=== PATIENT | female | born 1940 | race American Indian/Alaskan Native ===

== ENCOUNTER 2017-02-26 15:56 | Emergency (ER) | payer MEDICARE, BC ==
[2017-02-26 15:57] VITALS: BMI 38.1
[2017-02-26 16:12] VITALS: TEMP 98.8
[2017-02-26] MEDS ORDERED: Sodium Chloride 0.9% 1,000 ML IV ONE (17:40)
--- NOTE | 2017-02-26 17:48 | C.PDOC ---
History Of Present Illness 76-year-old female presents to the emergency department with complaints of pelvic pain, hematuria/dysuria after being treated with intravesicular BCG by Dr Janae Will this morning (for bladder CA). Patient notes that this was her third treatment, and she has not had any complications with previous treatments. Denies fever, nausea/vomiting, vaginal bleeding or discharge. Time Seen by Provider: 02/26/17 16:22 Chief Complaint (Nursing): Female Genitourinary History Per: Patient History/Exam Limitations: no limitations Onset/Duration Of Symptoms: Hrs Current Symptoms Are (Timing): Still Present Severity: Mild Associated Symptoms: denies: Fever, Chills, Nausea, Vomiting Abnormal Vaginal Bleeding: No Past Medical History Reviewed: Historical Data, Nursing Documentation, Vital Signs Vital Signs: Last Vital Signs Temp 98.8 F 02/26/17 16:09 Pulse 98 H 02/26/17 19:44 Resp 20 02/26/17 19:44 BP 131/79 02/26/17 19:44 Pulse Ox 98 02/26/17 19:44 - Medical History PMH: HTN Family History: Denies: Other Other Family History: noncontributory - Social History Hx Alcohol Use: No Hx Substance Use: No - Immunization History Hx Influenza Vaccination: No Hx Pneumococcal Vaccination: No Review Of Systems Except As Marked, All Systems Reviewed And Found Negative. Constitutional: Negative for: Fever, Chills Cardiovascular: Negative for: Chest Pain, Palpitations Respiratory: Negative for: Cough, Shortness of Breath Gastrointestinal: Negative for: Nausea, Vomiting Genitourinary: Positive for: Dysuria, Hematuria, Pelvic Pain. Negative for: Incontinence, Vaginal Discharge, Vaginal Bleeding Musculoskeletal: Negative for: Back Pain Skin: Negative for: Rash Physical Exam - Physical Exam Appears: Well, Non-toxic, Other (in mild pain ) Skin: Warm, Dry, No Rash Head: Normacephalic Eye(s): bilateral: Normal Inspection Oral Mucosa: Moist Neck: Normal, Normal ROM Chest: Symmetrical Cardiovascular: Rhythm Regular Respiratory: Normal Breath Sounds, No Rales, No Rhonchi, No Wheezing Gastrointestinal/Abdominal: Normal Exam, Bowel Sounds, Soft, No Tenderness, No Guarding, No Rebound Pelvic: Normal External Exam, Normal Speculum Exam, Normal Bimanual Exam, No Vaginal Bleeding, No Vaginal Discharge, Other (No blood or swelling at urethra) Extremity: Normal ROM Neurological/Psych: Oriented x3 ED Course And Treatment - Laboratory Results Result Diagrams: 02/26/17 18:24 02/26/17 18:24 O2 Sat by Pulse Oximetry: 97 (RA) Pulse Ox Interpretation: Normal Progress Note: Bloodwork and UA ordered and reviewed. Patients bladder scan reveals 155mL of urine. Patient given IV NS bolus and PO Pyridium. Reevaluation Time: 19:20 Reassessment Condition: Improved (On reassessment, patient is resting comfortably and states she feels better. Vitals are WNL, and patient is well appearing. PO Ciprofloxacin given in ED. Blood work does show mild luekocytosis, but no bandemia. Patient is comfortable being dishcarged home, and was instructed to follow up with Dr. Will this week. She understands she should return to ED if syptoms worsen.) - Physician Consult Information Physician Contacted: Janae Will Outcome Of Conversation: Discussed patient with Dr. Bill Will, he recommends blood work, UA and IV NS bolus. If patien is afebrile and well appearing, she can be discharged with PO antibitoics and follow up in the office. Disposition Counseled Patient/Family Regarding: Studies Performed, Diagnosis, Need For Followup, Rx Given - Disposition Referrals: Janae Will MD [Staff Provider] - Disposition: HOME/ ROUTINE Disposition Time: 19:20 Condition: STABLE Additional Instructions: CALL DR WILL'S OFFICE TOMORROW AND SCHEDULE OFFICE FOLLOW UP USE MEDICATIONS DIRECTED RETURN TO ER IF SYMPTOMS WORSEN Prescriptions: Ciprofloxacin [Cipro] 1 tab PO BID #14 tab Phenazopyridine [Pyridium] 100 mg PO TID #9 tab Instructions: Dysuria (ED) Print Language: KITTITIAN - POA Present On Arrival: None - Clinical Impression Clinical Impression: Dysuria, Hematuria, Medication side effect - Scribe Statement The provider has reviewed the documentation as recorded by the Memo Leon All medical record entries made by the Scribe were at my direction and personally dictated by me. I have reviewed the chart and agree that the record accurately reflects my personal performance of the history, physical exam, medical decision making, and the department course for this patient. I have also personally directed, reviewed, and agree with the discharge instructions and disposition.
[2017-02-26 18:07] LABS: RBC URINE 1372 /hpf (0-3); URINE BACTERIA MOD (<OCC); URINE BILIRUBIN NEGATIVE (NEGATIVE); URINE BLOOD 2+ (NEGATIVE); URINE COLOR Red (YELLOW); URINE GLUCOSE (UA) NORMAL (Normal); URINE KETONE TRACE mg/dL (NEGATIVE); URINE LEUKOCYTE ESTERASE 1+ Leu/uL (Negative); URINE PROTEIN 2+ mg/dL (NEGATIVE); URINE UROBILINOGEN NORMAL mg/dL (0.2-1.0); WBC CLUMPS MANY /hpf; WBC URINE 747 /hpf (0-5)
[2017-02-26] MEDS ORDERED: Sodium Chloride 0.9% 1,000 ML ONE (18:15)
[2017-02-26 18:32] LABS: BASO % 0.1 % (0.0-2.0); EOS % 0.1 % (0.0-4.0); HEMATOCRIT 32.3 % (34.0-47.0); LYMPH # 1.7 K/uL (1.0-4.3); MEAN CELL VOLUME 74.4 fL (81.0-99.0); MEAN CORPUSCULAR HEMOGLOBIN 23.2 pg (27.0-31.0); MEAN CORPUSCULAR HGB CONC 31.1 g/dL (33.0-37.0); MONO # 0.8 K/uL (0.0-0.8); MONO % 5.1 % (0.0-10.0); NRBC % 0.1 % (0.0-2.0); RED CELL DISTRIBUTION WIDTH 18.9 % (11.5-14.5); WHITE BLOOD COUNT 15.6 K/uL (4.8-10.8)
[2017-02-26 18:37] LABS: CHLORIDE 94 mmol/L (98-107)
[2017-02-26 18:38] LABS: POTASSIUM 3.7 mmol/L (3.6-5.2); SODIUM 134 mmol/L (132-148)
[2017-02-26 18:40] LABS: ALB/GLOB RATIO 1.2 (1.0-2.1); AST/SGOT 31 U/L (14-36); BILIRUBIN,TOTAL 0.6 mg/dL (0.2-1.3); CARBON DIOXIDE 30 mmol/L (22-30); GFR AFRICAN-AMERICAN > 60
[2017-02-26 18:41] LABS: ALKALINE PHOSPHATASE 132 U/L (38-126); ALT/SGPT 32 U/L (9-52); BLOOD UREA NITROGEN 13 mg/dL (7-17); CALCIUM 7.9 mg/dl (8.6-10.4); GLUCOSE,RANDOM 119 mg/dL (65-105)
[2017-02-26 19:45] VITALS: BP 131/79; PULSE 98; RESP 20
[2017-03-04 13:04] VITALS: O2SAT 97
== END 2017-02-26 19:48 | disposition home or self-care (01) ==
LOC: C.ER 15:56
DX: R31.9 Hematuria, unspecified (principal); R30.0 Dysuria; T50.995A Adverse effect of other drugs, medicaments and biological substances, initial encounter
CPT/HCPCS: 80053; 81001; 85025; 87086; 99285; J7040

== ENCOUNTER 2017-03-24 16:36 | Emergency (ER) | payer MEDICARE, BC ==
[2017-03-24 16:37] VITALS: BMI 38.1
[2017-03-24 16:49] VITALS: RESP 20
[2017-03-24] MEDS ORDERED: Sodium Chloride 0.9% 1,000 ML IV STA (16:59)
[2017-03-24 17:11] LABS: RBC URINE 12 /hpf (0-3); RENAL EPITHELIAL < 1 /hpf (0-3); URINE BACTERIA RARE (<OCC); URINE BILIRUBIN NEGATIVE (NEGATIVE); URINE BLOOD NEGATIVE (NEGATIVE); URINE COLOR Yellow (YELLOW); URINE GLUCOSE (UA) NORMAL (Normal); URINE HYALINE CAST 0-2 /lpf (0-2); URINE KETONE NEGATIVE (NEGATIVE); URINE LEUKOCYTE ESTERASE 2+ Leu/uL (Negative); URINE PROTEIN 2+ mg/dL (NEGATIVE); URINE UROBILINOGEN NORMAL mg/dL (0.2-1.0); WBC URINE 212 /hpf (0-5)
--- NOTE | 2017-03-24 17:14 | C.PDOC ---
History Of Present Illness The patient, a 76 y/o female whose PMHx includes HTN, Bladder Cancer, Breast Cancer, and is s/p chemotherapy around 2.5 weeks ago, presents to the ED for evaluation of fever (Tmax 100.7) and generalized weakness which began 1 day ago. Patient also reports suprapubic pain and dysuria. She reports taking half of one Percocet [employer]. Patient admits to prior history of UTI. She denies chest pain, shortness of breath, cough, bloody or black stool, and vomiting. PMD: Dr. Heron Ruiz Urologist: Dr. Will Oncologist: Dr. Suresh Park Time Seen by Provider: 03/24/17 16:49 Chief Complaint (Nursing): Fever History Per: Patient History/Exam Limitations: no limitations Onset/Duration Of Symptoms: Days Current Symptoms Are (Timing): Still Present Associated Symptoms: Fever, Other (+suprapubic pain, dysuria ). denies: Cough, Vomiting Ear Symptoms: Bilateral: None Additional History Per: Patient Past Medical History Reviewed: Historical Data, Nursing Documentation, Vital Signs Vital Signs: Last Vital Signs Temp 99.0 F 03/24/17 16:44 Pulse 94 H 03/24/17 16:44 Resp 20 03/24/17 16:44 BP 122/60 03/24/17 16:44 Pulse Ox 96 03/24/17 17:16 - Medical History PMH: HTN Denies: Chronic Kidney Disease Surgical History: No Surg Hx Family History: States: Unknown Family Hx - Social History Hx Alcohol Use: No Hx Substance Use: No - Immunization History Hx Influenza Vaccination: No Hx Pneumococcal Vaccination: No Review Of Systems Except As Marked, All Systems Reviewed And Found Negative. Constitutional: Positive for: Fever, Weakness Cardiovascular: Negative for: Chest Pain Respiratory: Negative for: Cough, Shortness of Breath Gastrointestinal: Positive for: Abdominal Pain (suprapubic ). Negative for: Vomiting Genitourinary: Positive for: Dysuria Physical Exam - Physical Exam Additional Physical Exam Comments: Constitutional: No acute distress. Head: Normocephalic. Atraumatic. Eyes: PERRL. ENT: Moist mucous membranes. Neck: Supple. Cardiovascular: Regular rate. Radial pulse 2+ bilaterally. Chest: No tenderness. Respiratory: Clear to auscultation bilaterally. GI: Soft. Suprapubic tenderness. Nondistended. Back: No CVA tenderness. Musculoskeletal: No tenderness or swelling of extremities. Skin: No rash. Neurologic: Alert, no focal deficit. ED Course And Treatment - Laboratory Results Result Diagrams: 03/24/17 17:14 03/24/17 17:14 O2 Sat by Pulse Oximetry: 96 (on RA) Pulse Ox Interpretation: Normal Medical Decision Making Medical Decision Making: Impression: 76 y/o female with fever, generalized weakness, suprapubic pain and dysuria Plan: * labs * CXR * IV Fluids * reassess and disposition Progress: labs and CXR ordered and reviewed. Pt received IV Fluids. CXR shows no acute disease. UA shows UTI. No leukopenia or leukocytosis. Vital signs normal. Patient states she feels much better and wishes to go home. She has follow up with her private physician this week. Will discharge on Cipro as it appears to have worked in the past. Discharge home, instructed to return to the ER for worsening pain, fever, dyspnea, vomiting, weakness, back pain, or any other problem. Disposition - Disposition Disposition: HOME/ ROUTINE Disposition Time: 17:45 Condition: STABLE Prescriptions: Ciprofloxacin [Cipro] 500 mg PO BID #14 tab Instructions: Urinary Tract Infection in Women (ED) - Clinical Impression Clinical Impression: UTI (urinary tract infection) - Scribe Statement The provider has reviewed the documentation as recorded by the Scribe (Mary Park) Provider Attestation: All medical record entries made by the Scribe were at my direction and personally dictated by me. I have reviewed the chart and agree that the record accurately reflects my personal performance of the history, physical exam, medical decision making, and the department course for this patient. I have also personally directed, reviewed, and agree with the discharge instructions and disposition.
[2017-03-24] MEDS ORDERED: Sodium Chloride 0.9% 1,000 ML ONE (17:15)
[2017-03-24 17:17] LABS: BASO % 0.3 % (0.0-2.0); HEMATOCRIT 27.5 % (34.0-47.0); LYMPH # 1.3 K/uL (1.0-4.3); LYMPH % 13.4 % (20.0-40.0); MEAN CORPUSCULAR HEMOGLOBIN 24.2 pg (27.0-31.0); MEAN CORPUSCULAR HGB CONC 31.8 g/dL (33.0-37.0); MEAN PLATELET VOLUME 7.4 fL (7.2-11.7); MONO # 0.6 K/uL (0.0-0.8); MONO % 6.8 % (0.0-10.0); RED CELL DISTRIBUTION WIDTH 17.3 % (11.5-14.5); WHITE BLOOD COUNT 9.4 K/uL (4.8-10.8)
[2017-03-24 17:20] LABS: VENOUS BLOOD GAS BASE EXCESS 7.5 mmol/L (0.0-2.0); VENOUS BLOOD GAS PCO2 47 mmHg (40-60); VENOUS BLOOD PH 7.45 (7.32-7.43)
[2017-03-24 17:25] LABS: CHLORIDE 96 mmol/L (98-107); SODIUM 136 mmol/L (132-148)
[2017-03-24 17:26] LABS: POTASSIUM 3.1 mmol/L (3.6-5.2)
[2017-03-24 17:28] LABS: ALB/GLOB RATIO 1.1 (1.0-2.1); ALKALINE PHOSPHATASE 114 U/L (38-126); ALT/SGPT 28 U/L (9-52); AST/SGOT 23 U/L (14-36); BILIRUBIN,TOTAL 0.5 mg/dL (0.2-1.3); BLOOD UREA NITROGEN 11 mg/dL (7-17); CALCIUM 7.4 mg/dl (8.6-10.4); CARBON DIOXIDE 29 mmol/L (22-30); GFR AFRICAN-AMERICAN > 60; GLUCOSE,RANDOM 97 mg/dL (65-105); TOTAL PROTEIN 6.6 g/dL (6.3-8.3)
[2017-03-24] MEDS ORDERED: Ciprofloxacin 400mg/200ml D5W 400 MG/200 ML BAG IVPB STA (17:46)
[2017-03-24 18:02] VITALS: BP 125/62; PULSE 98; TEMP 98.7; O2SAT 98
--- NOTE | 2017-03-25 08:10 | RAD ---
HISTORY: fever COMPARISON: 12/06/2016 FINDINGS: LUNGS: Mild venous congestion. Patchy left basilar airspace opacity. Lines and tubes in stable position. Biapical pleural thickening with upper lobe granulomatous changes. . PLEURA: As above. CARDIOVASCULAR: Mild cardiomegaly. OSSEOUS STRUCTURES: No significant abnormalities. VISUALIZED UPPER ABDOMEN: Normal. OTHER FINDINGS: None. IMPRESSION: Mild venous congestion. Patchy left basilar airspace opacity. Lines and tubes in stable position. Biapical pleural thickening with upper lobe granulomatous changes. .
== END 2017-03-24 18:28 | disposition home or self-care (01) ==
LOC: C.ER 16:36
DX: N39.0 Urinary tract infection, site not specified (principal); I10 Essential (primary) hypertension; Z87.891 Personal history of nicotine dependence; Z85.3 Personal history of malignant neoplasm of breast; Z85.51 Personal history of malignant neoplasm of bladder
CPT/HCPCS: 71010; 80053; 81001; 82803; 83690; 85025; 87040; 87086; 96360; 99284; J7040

== ENCOUNTER 2018-11-18 12:41 | Outpatient (CLI) | payer MEDICARE | END 2018-11-18 12:42 | disposition home or self-care (01) | LOC: C.PAT 12:41 | DX: O67.9 Intrapartum hemorrhage, unspecified (principal) ==

== ENCOUNTER 2018-12-02 07:03 | Day surgery (SDC) | payer BC, MEDICARE ==
[2018-12-02 08:05] VITALS: BMI 41.5
[2018-12-02] MEDS ORDERED: Midazolam 2 MG/2 ML VIAL ONE (10:51)
[2018-12-02] MEDS ORDERED: Propofol 10 mg/ml Inj (20 ML) ONE (10:51)
[2018-12-02] MEDS ORDERED: Ciprofloxacin 400mg/200ml D5W 400 MG/200 ML BAG IVPB ONE (10:54)
[2018-12-02] MEDS ORDERED: Iohexol 240 (50 ml) ONE (10:54)
[2018-12-02] MEDS ORDERED: Lidocaine 2% Jelly (Uro-Jet) ONE (10:54)
[2018-12-02] MEDS ORDERED: HYDROmorphone 0.5 mg/0.5 ml ISec IVP PRN (11:31)
[2018-12-02] MEDS ORDERED: Lactated Ringer's 1,000 ML IV SCH (11:45)
--- NOTE | 2018-12-02 12:00 | PCM.SURG1 ---
Surgeon's Initial Post Op Note - Surgeon's Notes Surgeon: Bill ESPINOSA Galvanizing Pot Runner: NONE Type of Anesthesia: General LMA Pre-Operative Diagnosis: hx of bladder ca Operative Findings: abnormal bladder mucosa Post-Operative Diagnosis: same Operation Performed: cysto. bilat rtg pyelogram. bladder bx and fulg. EUA Specimen/Specimens Removed: urine. bladder bx Estimated Blood Loss: EBL {In ML}: 0 Blood Products Given: N/A Drains Used: No Drains Post-Op Condition: Good Date of Surgery/Procedure: 12/02/18 Time of Surgery/Procedure: 11:30
[2018-12-02 12:40] VITALS: TEMP 97.5
[2018-12-02 13:01] VITALS: RESP 18
[2018-12-02 13:38] VITALS: BP 143/63; PULSE 76; O2SAT 95
--- NOTE | 2018-12-02 18:06 | RAD ---
Date of service: Digit neck at the results now the hip and pelvis were totally normal artery remember with other 12/02/2018 PROCEDURE: Intraoperative Fluoroscopy. HISTORY: Bladder tumor FINDINGS: Fluoroscopic assistance was provided for bilateral retrograde. Please refer to the operative report from Dr. ESPINOSA, KINGMAN.
--- NOTE | 2018-12-08 20:20 | OP ---
PROCEDURE DATE: 12/02/2018 PREOPERATIVE DIAGNOSIS: History of bladder carcinoma. POSTOPERATIVE DIAGNOSIS: No recurrent tumor. PROCEDURES: Cystoscopy. Bilateral retrograde ureteral pyelogram. Bladder biopsy and fulguration. OPERATING SURGEON: Janae Will MD DESCRIPTION OF PROCEDURE: Procedure as follows: The patient was placed in lithotomy position. The patient received perioperative antibiotics. The genitalia prepped and draped sterilely. Anesthesia was provided by the anesthesiologist. The procedure was performed under video endoscopic control as well as under fluoroscopic control. A 22-Spanish cystoscope sheath was introduced with obturator. Urine was sent for bacteriologic and cytologic examination. The urethra and bladder were inspected 30-degree and 70-degree lenses. FINDINGS: There was normal caliber of the urethra and bladder neck. There was no bladder tumor. There was no bladder stone. There was moderate bladder trabeculation. There was focal areas of erythema within the bladder. This area was biopsied using cold cup biopsy forceps. Fulguration was performed with Ball electrode electrocautery. Iodinated contrast dye was instilled via cone-tip catheter into each ureteral orifice. The ureters and the kidneys were viewed sequentially. There was no evidence of filling defect or obstruction within the ureters or collecting system. There was good drainage noted on the post drainage films. The bladder was reinspected with 70-degree lens and confirmed the above findings. There was no bleeding noted. The bladder was then drained. Cystoscope sheath removed. Exam under anesthesia was performed. Pelvic examination was performed as well as anorectal examination. There was no abnormal pelvic mass fixation or induration. There was no fixation or induration of the mass of the bladder, specifically relative to the patient's history of bladder carcinoma. There was no adnexal mass. The patient was returned to the supine position. The patient tolerated procedure without complication. Janae Will MD
== END 2018-12-02 12:53 | disposition home or self-care (01) ==
LOC: C.SDS 07:03
PROVIDERS: ATTEND Urology
DX: C67.9 Malignant neoplasm of bladder, unspecified (principal); I10 Essential (primary) hypertension; Z90.11 Acquired absence of right breast and nipple; Z88.0 Allergy status to penicillin
CPT/HCPCS: 52005; 52234; 87086; 88104; 88305; C1758; J0744; Q9966